=== PATIENT | male | born 1975 | race African-American/Black ===

== ENCOUNTER 2025-01-09 09:36 | Outpatient (CLI) | payer BC ==
[2025-01-09 10:31] LABS: #Basophils Less than 0.03 10x3/uL (0.0-0.2); #Eosinophils 0.11 10x3/uL (0.0-0.7); #Monocytes 0.58 10x3/uL (0.11-0.59); #Neutrophils 1.33 10x3/uL (1.40-6.50); %Basophils 0.5 % (0.0-1.0); %Eosinophils 3.0 % (0.0-10.0); %Lymphocytes 44.7 % (21.0-51.0); %Monocytes 15.6 % (0.0-10.0); %Neutrophils 35.9 % (42.0-75.0); Hematocrit 46.3 % (42.0-52.0); Hemoglobin 14.9 g/dL (14.0-18.0); Mean Corpuscular Hemoglobin 32.3 pg (27.0-31.0); Mean Corpuscular Volume 100.4 fL (78.0-98.0); Platelet Count 160 10x3/uL (130-400); Red Blood Cell (RBC) Count 4.61 mill/uL (4.70-6.10); White Blood Cell (WBC) Count 3.71 10x3/uL (4.8-10.8)
[2025-01-09 10:44] LABS: INR-International Normal Ratio 1.0; PTT 29.2 sec (22.9-36.1); Prothrombin Time 13.6 sec (12.0-14.7)
[2025-01-09 10:47] LABS: Anion Gap 13 mmol/L (10-20); BUN (Urea Nitrogen) 12 mg/dL (8.9-20.6); Calc. Creatinine Clearance 0 mL/min (70-130); Calcium 9.4 mg/dL (7.8-10.44); Carbon Dioxide 34 mmol/L (22-29); Chloride 100 mmol/L (98-107); Glucose 139 mg/dL (70-105); Potassium 3.6 mmol/L (3.5-5.1); Sodium 143 mmol/L (136-145)
[2025-01-09 10:54] LABS: Bacteria/HPF None Seen HPF (None Seen); Glucose, Urine (Dipstick) Normal (Negative); Leukocyte Negative Leu/uL (Negative); Protein, Urine (Dipstick) 20 mg/dL (Neg-Trace); RBC/HPF 0-3 HPF (0-3); Specific Gravity, Urine 1.020 (1.002-1.036); WBC/HPF 0-3 HPF (0-3)
== END 2025-01-09 09:37 | disposition home or self-care (01) ==
LOC: LABBT 09:36
PROVIDERS: ATTEND Urology
DX: Z01.818 Encounter for other preprocedural examination (principal); Z12.5 Encounter for screening for malignant neoplasm of prostate; N32.9 Bladder disorder, unspecified; R35.0 Frequency of micturition; R35.1 Nocturia; B19.20 Unspecified viral hepatitis C without hepatic coma; F11.11 Opioid abuse, in remission; N40.1 Benign prostatic hyperplasia with lower urinary tract symptoms; Z87.440 Personal history of urinary (tract) infections
CPT/HCPCS: 80048; 81001; 85025; 85610; 85730; 86850; 86900; 86901; 87086; 93005; 93010

== ENCOUNTER 2025-01-23 08:19 | Day surgery (SDC) | payer BC ==
[2025-01-09 09:43] VITALS: BMI 19.0
[2025-01-23] MEDS ORDERED: PROPOFOL 20 ML ONE (09:55)
[2025-01-23] MEDS ORDERED: Rocuronium Bromide 10 MG/ML (10ML VIAL) ONE (09:55)
[2025-01-23] MEDS ORDERED: LevoFLOXacin D5W 500 mg (100 mL) BAG ONE (10:52)
[2025-01-23] MEDS ORDERED: fentaNYL PF 100 MCG/2 ML SYRINGE ONE (11:26)
[2025-01-23] MEDS ORDERED: Ondansetron PF 4 MG/2 ML Vial ONE (11:59)
[2025-01-23] MEDS ORDERED: Ketamine In 0.9 % NaCl 50 MG/5 ML SYRINGE ONE (12:02)
[2025-01-23] MEDS ORDERED: Metoprolol Tartrate 5 MG (5 mL) VIAL ONE (12:06)
[2025-01-23] MEDS ORDERED: Furosemide 20 MG (2 mL) VIAL ONE (12:24)
[2025-01-23] MEDS ORDERED: SUGAMMADEX SODIUM 200 MG/2 ML VIAL ONE (12:34)
[2025-01-23] MEDS ORDERED: HYDROmorphone 0.5 MG/0.5 ML SYRINGE ONE (13:28)
[2025-01-23] MEDS ORDERED: Hyoscyamine SL 0.125 MG TAB ONE ×2 (13:28→13:41)
== END 2025-01-23 16:00 | disposition home or self-care (01) ==
LOC: SDC 08:19
PROVIDERS: ATTEND Urology
PROC: 0T5C8ZZ Destruction of Bladder Neck, Via Natural or Artificial Opening Endoscopic (ICD-10-PCS; principal; 2025-01-23)
PROC: 0TBB8ZX Excision of Bladder, Via Natural or Artificial Opening Endoscopic, Diagnostic (ICD-10-PCS; principal; 2025-01-23)
PROC: 0TBC8ZZ Excision of Bladder Neck, Via Natural or Artificial Opening Endoscopic (ICD-10-PCS; principal; 2025-01-23)
DX: N30.20 Other chronic cystitis without hematuria (principal); N40.1 Benign prostatic hyperplasia with lower urinary tract symptoms; R35.1 Nocturia; R35.0 Frequency of micturition; I10 Essential (primary) hypertension; B19.20 Unspecified viral hepatitis C without hepatic coma; F17.200 Nicotine dependence, unspecified, uncomplicated; Z79.899 Other long term (current) drug therapy
CPT/HCPCS: 86850; 86900; 86901; 88305; C1769; J1100; J1171; J1940; J1956; J2250; J2704; J3010; J3490